=== PATIENT | male | born 1975 | race Two or more races ===

== ENCOUNTER 2017-01-18 09:28 | Emergency (ER) | payer OTHER ==
[2017-01-18] MEDS ORDERED: LORazepam 2 MG/ML DISP.SYRIN IM ONE (10:02)
--- NOTE | 2017-01-18 10:03 | ERNOTE ---
Psychological HPI - Date Date of Service: 01/18/17 - General Chief Complaint: Anxiety Source: Reports: patient Exam Limitations: Reports: no limitations - Immun/Allergies/Home Medications Allergies/Adverse Reactions: Allergies codeine Allergy (Verified 01/18/17 09:48) Home Medications: HOME MEDICATIONS LORazepam [Ativan] 1 mg PO TID #10 tab 01/18/17 [Last Taken Unknown] hydrOXYzine HCL [Atarax] 25 mg PO Q4H PRN 01/18/17 [Last Taken Unknown] - History of Present Illness Narrative: Pt. comes in with c/o anxiety since 0730 this morning. Pt. 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 Pt. states that it helps a little but not much and he is now dizzy from his panic attack lasting so long. Pt. also used 3 doses of atarax without relief. Pt. is under treatment by his psychiatrist at the [facility] and usually the atarax and his daily medications keep the panic attacks controllable. Time Seen by Provider: 01/18/17 09:52 Review of Systems - Review of Systems Constitutional: Present: no symptoms reported EYE: Present: no symptoms reported ENT: Present: no symptoms reported Respiratory: Present: no symptoms reported. Absent: shortness of breath, cough , wheezing Cardiology: Present: palpitations - racing heart. Absent: chest pain, edema Gastrointestinal/Abdominal: Present: no symptoms reported Genitourinary: Present: no symptoms reported Musculoskeletal: Present: no symptoms reported. Absent: back pain, joint pain Neurological: Present: dizziness/light-headedness. Absent: headache, numbness, tingling Psych: Present: anxiety, emotional problems. Absent: depressed All Other Systems: All systems neg except as marked - Patient's Past Medical History Patient History - Medical: Anxiety, Kidney stone Patient History - Cardiac/Respiratory: No pertinent hx Patient History - Cancer: No Hx of Cancer Patient History - Surgical Procedures: T & A Patient History - Other: None - Social History Living Situations: home Psych History: Hx of Anxiety - Immunizations Hx Pneumococcal Vaccination: No History of Influenza Vaccine: Yes Physical Exam - Physical Exam General Appearance: Present: wd/wn, alert, no apparent distress Eye Exam: Normal inspection: bilateral, PERRL: bilateral, EOMI: bilateral Ears, Nose, Throat: Present: normal ENT inspection, normal pharynx Neck: Present: normal inspection, nontender. 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 ED Progress - Vital Signs Patient's Vital Signs:: I have reviewed the patient's vital signs. Vital Signs: Vital Signs 01/18/17 09:43 Temperature 36.8 C Pulse Rate 87 Respiratory 12 Rate Blood Pressure 158/96 O2 Sat by Pulse 99 Oximetry - Progress/Reassessment Chief Complaint: Anxiety Departure Clinical Impression: Panic attack - Departure Disposition: Home self-care Condition: Good Instructions: Panic Attacks, [id number] Additional Instructions: [facility]. Prescriptions: LORazepam [Ativan] 1 mg PO TID #10 tab
--- OUTSIDE RECORDS SUMMARY | 2017-01-18 10:13 | XMS REPORT | Continuity of Care Document ---
:1975 Author Organization [employer] [place] [address] Care Team Providers Name Role Phone Eduardo Harper Primary Care Provider [phone] Source Comments This disclosure is being made pursuant to the [employer] program and maynot contain all information available regarding this patient.[employer] Active Allergies and Adverse Reactions Allergen Noted Date Severity Reactions Comments Codeine 08/01/2014 High Hives Current Medications Be aware that medications may not be up to date as of this document. Alwaysverify current medications with the patient. Not on file Active Problems Not on file Social History Tobacco Use Types Packs/Day Years Used Date Never Assessed Plan of Care Health Maintenance Due Date Last Done Comments Tetanus/Pertussis (1 - Tdap) 1994 Influenza Immunization (#1) 2016 Results from Last 3 Months Not on file
[2017-01-18 10:52] LABS: Hematocrit 44.5 % (42.0-52.0); Hemoglobin 16.1 gm/dL (13.5-18.0); Mean Cell Volume 91.2 fl (78-100); Mean Corpuscular Hgb Conc 36.2 g/dl (32-36); Mean Platelet Volume 9.7 fl (6.0-9.5); Neutrophil # 5.9 K/mm3 (1.3-6.0); Neutrophil % 82.6 % (42-75.0); Platelet Count 223 K/mm3 (150-450); Red Blood Count 4.88 M/mm3 (4.7-6.0); Red Cell Distribution Width 11.8 % (11.5-14.0); White Blood Count 7.1 K/mm3 (4.0-10.5)
[2017-01-18 11:11] LABS: Albumin * 4.5 gm/dl (3.4-5.0); Anion Gap 14.4 mmol/L (6.8-13.8); Bilirubin, Total 0.5 mg/dL (0.0-1.1); Ca. Corrected For Albumin 8.8 mg/dL (8.4-10.2); Calcium * 9.5 mg/dL (7.9-10.9); Carbon Dioxide 25.1 mmol/L (24-32.6); Potassium 3.5 mmol/L (3.4-4.6); TSH * 1.426 uIU/mL (0.358-3.74)
[2017-01-18 11:42] LABS: Hemoglobin A1C 4.8 % (4.00-6.0)
[2017-01-18 11:45] LABS: Urine Appearance Clear; Urine Bilirubin Negative (NEGATIVE); Urine Color Yellow; Urine Ketone Negative (NEGATIVE)
[2017-01-18 11:46] LABS: Urine Bacteria None Seen; Urine Blood Negative /ul (NEGATIVE); Urine Nitrite Negative (NEGATIVE); Urine Protein Negative (NEGATIVE); Urine RBC None Seen /hpf (0-5); Urine Specific Gravity 1.005 SP.GR. (1.005-1.030); Urine Urobilinogen Normal (NORMAL); Urine WBC None Seen /hpf (0-5)
[2017-01-18 11:51] LABS: Cocaine Ur Negative (NEGATIVE); Urine Barbiturate Negative (NEGATIVE); Urine Benzodiazepines Negative (NEGATIVE); Urine Opiates Negative (NEGATIVE); Urine PCP Negative (NEGATIVE); Urine THC Negative (NEGATIVE)
[2017-01-18 12:35] VITALS: BP 149/91
== END 2017-01-18 12:10 | disposition home or self-care (01) ==
LOC: ER 09:28
DX: F41.0 Panic disorder [episodic paroxysmal anxiety] (principal); Z87.442 Personal history of urinary calculi; Z79.899 Other long term (current) drug therapy